=== PATIENT | male | born 1960 | race Caucasian/White ===

== ENCOUNTER → 2017-10-02 | Day surgery (SDC) | payer OTHER ==
[~2017-10-02] VITALS: Ht 162.6 cm; Wt 56.2 kg
[2017-10-02 07:08] VITALS: BP 141/73
[2017-10-02 10:52] VITALS: BP 112/68
== END | disposition home or self-care (01) ==
LOC: OR 06:33
PROVIDERS: Internal Medicine Gastroenterology
PROC: 0DBN8ZZ Excision of Sigmoid Colon, Via Natural or Artificial Opening Endoscopic (ICD-10-PCS; principal; 2017-10-02 07:30)
DX: K64.8 Other hemorrhoids (principal); K62.5 Hemorrhage of anus and rectum; D12.5 Benign neoplasm of sigmoid colon
CPT/HCPCS: 45378; J1200; J1610; J2250; J2310; J3010; J3490